=== PATIENT | male | born 1955 | race Caucasian/White ===

== ENCOUNTER 2017-01-09 12:08 | Emergency (ER) | payer SELFPAY ==
[2017-01-09] MEDS ORDERED: Insulin REGULAR(*) 1 UNITS UNIT IV PUSH ONE (12:56)
[2017-01-09 13:49] LABS: Hematocrit 42 % (42-52); Hemoglobin 14.3 g/dl (14.0-18.0); Mean Corpuscular HGB Conc 35 g/dl (31-36); Mean Corpuscular Hemoglobin 32 pg (27-31); Mean Corpuscular Volume 94 fL (80-94); Mean Platelet Volume 9 um3 (7.4-10.4); Red Blood Count 4.45 10^6/ul (4.0-5.4); Red Cell Distribution Width 13 % (10.5-15)
[2017-01-09 14:07] LABS: Albumin 4.2 g/dL (3.2-5.2); BUN/Creatinine Ratio 22.7 (8-20); Calcium 9.8 mg/dL (8.6-10.3); EGFR African American 136.2 (>60); EGFR Non-African American 105.9 (>60); Globulin 3.1 g/dL (2-4); Potassium 4.4 mmol/L (3.5-5.0); Total Bilirubin 0.6 mg/dL (0.2-1.0); Total Protein 7.3 g/dL (6.4-8.9)
[2017-01-09 15:19] VITALS: BP 136/73
--- NOTE | 2017-01-09 15:59 | ED ---
Jarrod Tyson Benjamin, scribed for Mikey Anderson MD on 01/09/17 at 1328 . HPI Diabetic - HPI Summary HPI Summary: 61yo male with hx of DM2 is sent from [place] for high blood sugar to receive an insulin shot. Pt does not reguarly take insulin and uses metformin/glypizide, however recently been off metformin. Blood sugar was 396 this morning. Reports fatigue, some visual changes, polyuria, polydipsia, but denies fever or chills. - History Of Current Complaint Chief Complaint: EDGeneral Time Seen by Provider: 01/09/17 12:47 Hx Obtained From: Patient Onset/Duration: Gradual Onset, Still Present Timing: Constant Severity Initially: Mild Severity Currently: Mild Character: Lethargic Aggravating: Nothing Alleviating: Nothing Associated Signs & Symptoms: Polydipsia, Polyuria - Allergies/Home Medications Allergies/Adverse Reactions: Allergies Allergy/AdvReac Type Severity Reaction Status Date / Time Penicillins [PCN] Allergy Swelling Verified 01/09/17 12:15 PMH/Surg Hx/FS Hx/Imm Hx Endocrine/Hematology History: Reports: Hx Diabetes Cardiovascular History: Reports: Hx Hypertension Infectious Disease History: No Infectious Disease History: Denies: Traveled Outside the [place] in Last 30 Days - Family History Known Family History: Positive: Hypertension, Diabetes Negative: Cardiac Disease - Social History Occupation: Employed Full-time Lives: Alone Alcohol Use: None Hx Substance Use: No Substance Use Type: Reports: None Hx Tobacco Use: Yes Smoking Status (MU): Former Smoker Review of Systems Positive: Fever, Chills, Fatigue Positive: Blurred Vision ENT: Negative Cardiovascular: Negative Respiratory: Negative Gastrointestinal: Negative Genitourinary: Other - polyuria, polydipsia Musculoskeletal: Negative Skin: Negative Neurological: Negative Psychological: Normal All Other Systems Reviewed And Are Negative: Yes Physical Exam Triage Information Reviewed: Yes Vital Signs On Initial Exam: Initial Vitals Temp Pulse Resp BP Pulse Ox 97.9 F 80 20 177/84 97 01/09/17 12:11 01/09/17 12:11 01/09/17 12:11 01/09/17 12:11 01/09/17 12:11 Vital Signs Reviewed: Yes Appearance: Positive: Well-Appearing, No Pain Distress, Well-Nourished Skin: Positive: Warm, Skin Color Reflects Adequate Perfusion, Dry Head/Face: Positive: Normal Head/Face Inspection Eyes: Positive: Normal ENT: Positive: Normal ENT inspection Neck: Positive: Supple, Nontender Respiratory/Lung Sounds: Positive: Clear to Auscultation, Breath Sounds Present Cardiovascular: Positive: RRR Abdomen Description: Positive: Nontender, Soft Bowel Sounds: Positive: Present Musculoskeletal: Positive: Normal, Strength/ROM Intact Neurological: Positive: Normal, Sensory/Motor Intact, Alert, Oriented to Person Place, Time, CN Intact II-III Psychiatric: Positive: Affect/Mood Appropriate Diagnostics - Vital Signs Vital Signs Temp Pulse Resp BP Pulse Ox 01/09/17 12:33 81 95 01/09/17 12:24 97.9 F 80 20 177/84 97 01/09/17 12:11 97.9 F 80 20 177/84 97 - Laboratory Lab Results: Lab Results 01/09/17 01/09/17 01/09/17 Range/Units 13:36 13:36 14:18 WBC 8.0 (3.5-10.8) 10^3/ul RBC 4.45 (4.0-5.4) 10^6/ul Hgb 14.3 (14.0-18.0) g/dl Hct 42 (42-52) % MCV 94 (80-94) fL MCH 32 H (27-31) pg MCHC 35 (31-36) g/dl RDW 13 (10.5-15) % Plt Count 166 (150-450) 10^3/ul MPV 9 (7.4-10.4) um3 Neut % (Auto) 73.6 (38-83) % Lymph % (Auto) 15.8 L (25-47) % Boundary % (Auto) 8.3 (1-9) % Eos % (Auto) 1.7 (0-6) % Baso % (Auto) 0.6 (0-2) % Absolute Neuts (auto) 5.9 (1.5-7.7) 10^3/ul Absolute Lymphs (auto) 1.3 (1.0-4.8) 10^3/ul Absolute Monos (auto) 0.7 (0-0.8) 10^3/ul Absolute Eos (auto) 0.1 (0-0.6) 10^3/ul Absolute Basos (auto) 0 (0-0.2) 10^3/ul Absolute Nucleated RBC 0 10^3/ul Nucleated RBC % 0 Sodium 131 L (133-145) mmol/L Potassium 4.4 (3.5-5.0) mmol/L Chloride 98 L (101-111) mmol/L Carbon Dioxide 26 (22-32) mmol/L Anion Gap 7 (2-11) mmol/L BUN 17 (6-24) mg/dL Creatinine 0.75 (0.67-1.17) mg/dL Est GFR ( Amer) 136.2 (>60) Est GFR (Non-Af Amer) 105.9 (>60) BUN/Creatinine Ratio 22.7 H (8-20) Glucose 243 H (70-100) mg/dL POC Glucose (mg/dL) 211 H (74-106) mg/dL Calcium 9.8 (8.6-10.3) mg/dL Total Bilirubin 0.60 (0.2-1.0) mg/dL AST 49 H (13-39) U/L ALT 72 H (7-52) U/L Alkaline Phosphatase 62 (34-104) U/L Total Protein 7.3 (6.4-8.9) g/dL Albumin 4.2 (3.2-5.2) g/dL Globulin 3.1 (2-4) g/dL Albumin/Globulin Ratio 1.4 (1-3) Result Diagrams: 01/09/17 13:36 01/09/17 13:36 Lab Statement: Any lab studies that have been ordered have been reviewed, and results considered in the medical decision making process. Diabetic Course/Dx - Course Course Of Treatment: Mr. Baxter [resented with a concern for hyperglycemia up to 400 accompannied by blurred vision, polyuria and polydipsia. He has been battlinig his blood sugar for some weeks now and is currently taking glypizide. His serum glucose was 243 here and he was given 6 unints of regular insulin. An hour later his FSG was 211 and he was observed for another hour. - Diagnoses Provider Diagnoses: Hyperglycemia Discharge - Discharge Plan Condition: Stable Disposition: HOME Patient Education Materials: Diabetic Hyperglycemia (ED) Referrals: Sandro Altamirano MD [Primary Care Provider] - The documentation as recorded by the Jarrod brown Benjamin accurately reflects the service I personally performed and the decisions made by Justin marion Richard L, MD.
== END 2017-01-09 15:19 | disposition home or self-care (01) ==
LOC: ED 12:08
DX: E11.65 Type 2 diabetes mellitus with hyperglycemia (principal); Z87.891 Personal history of nicotine dependence; Z88.0 Allergy status to penicillin
CPT/HCPCS: 36415; 80053; 85025; 99282